=== PATIENT | male | born 1975 | race Caucasian/White ===

== ENCOUNTER → 2016-07-29 | Outpatient (REF) | payer OTHER ==
[2016-07-29 12:57] LABS: ANION GAP 11 MEQ/L (8-16); BLOOD UREA NITROGEN 16 MG/DL (7-18); CALCIUM LEVEL 9.1 MG/DL (8.5-10.1); CARBON DIOXIDE LEVEL 24 MEQ/L (21-32); CHLORIDE LEVEL 107 MEQ/L (98-107); CREATININE FOR GFR 0.98 MG/DL (0.70-1.30); GLOMERULAR FILTRATION RATE > 60.0 (>60); GLUCOSE, FASTING 85 MG/DL (70-105); POTASSIUM SERUM 3.9 MEQ/L (3.5-5.1); SODIUM LEVEL 142 MEQ/L (136-145)
== END | disposition home or self-care (01) ==
LOC: M LABDRAW1 11:23
PROVIDERS: ATTEND Physician Assistant Medical
DX: E06.3 Autoimmune thyroiditis (principal); E27.1 Primary adrenocortical insufficiency

== ENCOUNTER → 2017-02-04 | Outpatient (REF) | payer OTHER, SELFPAY | LOC: M LABDRAW1 11:43 | PROVIDERS: ATTEND Physician Assistant Medical | DX: E06.3 Autoimmune thyroiditis (principal) ==

== ENCOUNTER → 2018-04-08 | Outpatient (REF) | payer OTHER, SELFPAY ==
[2018-04-08 16:19] LABS: ANION GAP 8 MEQ/L (8-16); BLOOD UREA NITROGEN 16 MG/DL (7-18); CALCIUM LEVEL 9.2 MG/DL (8.5-10.1); CARBON DIOXIDE LEVEL 26 MEQ/L (21-32); CHLORIDE LEVEL 109 MEQ/L (98-107); CREATININE FOR GFR 0.92 MG/DL (0.70-1.30); FREE T4 1.16 NG/DL (0.76-1.46); GLOMERULAR FILTRATION RATE > 60.0 (>60); GLUCOSE, FASTING 78 MG/DL (70-100); POTASSIUM SERUM 3.8 MEQ/L (3.5-5.1); SODIUM LEVEL 143 MEQ/L (136-145)
== END ==
LOC: M LABDRAW1 12:20
DX: E06.3 Autoimmune thyroiditis (principal); E27.1 Primary adrenocortical insufficiency
CPT/HCPCS: 84443

== ENCOUNTER → 2019-05-19 | Outpatient (REF) | payer OTHER ==
[2019-05-19 12:37] LABS: BLOOD UREA NITROGEN 15 MG/DL (7-18); CALCIUM LEVEL 8.7 MG/DL (8.5-10.1); CARBON DIOXIDE LEVEL 30 MEQ/L (21-32); CHLORIDE LEVEL 108 MEQ/L (98-107); CREATININE FOR GFR 0.98 MG/DL (0.70-1.30); FREE T4 1.02 NG/DL (0.76-1.46); GLOMERULAR FILTRATION RATE > 60.0 (>60); GLUCOSE, FASTING 80 MG/DL (70-100); POTASSIUM SERUM 3.9 MEQ/L (3.5-5.1); SODIUM LEVEL 143 MEQ/L (136-145)
== END ==
LOC: M LABDRAW1 11:45
PROVIDERS: ATTEND Nurse Practitioner Family
DX: E06.3 Autoimmune thyroiditis (principal); E27.1 Primary adrenocortical insufficiency

== ENCOUNTER → 2019-07-18 | Outpatient (REF) | payer SELFPAY ==
[2019-07-18 16:43] LABS: INFLUENZA A AMPLIFICATION NEGATIVE (NEGATIVE); INFLUENZA B AMPLIFICATION NEGATIVE (NEGATIVE)
== END ==
LOC: M LAB REF 15:48
PROVIDERS: ATTEND Physician Assistant Medical
DX: J02.0 Streptococcal pharyngitis (principal)

== ENCOUNTER 2019-09-19 17:20 | Emergency (ER) | payer OTHER ==
[~2019-09-19] VITALS: Ht 167.6 cm; Wt 96.8 kg
[2019-09-19 17:21] VITALS: BP 168/110
[2019-09-19] MEDS ORDERED: HYDR-4468 PO (17:29)
[2019-09-19] MEDS ORDERED: LEVO150T7 PO (17:29)
[2019-09-19] MEDS ORDERED: LISI-542 PO (17:29)
[2019-09-19] MEDS ORDERED: FLUD0.1T PO (17:29)
[2019-09-19] MEDS ORDERED: GLUCAGON INJ 1MG VIAL IV STA (17:59)
[2019-09-19] MEDS ORDERED: GLUCAGON INJ 1MG VIAL As Ordered ONE (18:00)
[2019-09-19] MEDS ORDERED: fentaNYL 100 MCG/2 ML INJECTION (J3010) As Ordered ONE (19:54)
[2019-09-19] MEDS ORDERED: LIDOCAINE 2% 100MG/5ML SDV (FOR ANES.) As Ordered ONE (19:54)
[2019-09-19] MEDS ORDERED: propofoL 200 MG/20 ML VIAL As Ordered ONE (19:54)
[2019-09-19] MEDS ORDERED: ROCURONIUM BROMIDE 50 MG/5 ML VIAL As Ordered ONE (19:56)
[2019-09-19] MEDS ORDERED: ONDANSETRON 4MG/2ML VIAL As Ordered ONE (19:58)
[2019-09-19] MEDS ORDERED: MIDAZOLAM INJ 2MG/2ML VIAL (J2250 PER 1MG) As Ordered ONE (19:59)
--- NOTE | 2019-09-19 20:01 | HPE ---
DATE OF ADMISSION: 09/19/2019 CHIEF COMPLAINT: Dysphagia. HISTORY OF PRESENT ILLNESS: The patient is a 44-year-old male, who had steak for dinner last night and he has had trouble swallowing ever since. He has had difficulty with esophagus in the past. He was diagnosed with tertiary esophageal contractions. He has never had a balloon dilation; however, he was in the [facility] for influenza; and ever since then, he has noticed increased problems swallowing. Normally, if he gets the feeling of food stuck in his throat, he takes a large sip of water and swallows quickly and he can feel it pass. However, this time that is not working for him. He has tried everything he could. He has waited it out, but he has not been able to tolerate much more than his own secretions since last evening. In the emergency room (ER), they tried some glucagon, they tried Kourtney Mirta, without any improvement. PAST MEDICAL HISTORY: 1. [place]'s disease. 2. Hypothyroidism. PAST SURGICAL HISTORY: None. ALLERGIES: DOXYCYCLINE MEDICATIONS: Please see med rec. REVIEW OF SYSTEMS: Positives and negatives as stated in history of present illness. PHYSICAL EXAMINATION: GENERAL: Alert and oriented x3 in no acute stress. VITAL SIGNS: Stable, afebrile. HEENT: Pupils equal, round, react to light accommodation. Heart: S1-S2 regular rate. LUNGS: Clear auscultation bilaterally. ABDOMEN: Soft, nontender, nondistended. EXTREMITIES: No clubbing, cyanosis or edema. ASSESSMENT/PLAN: The patient is a 44-year-old male with esophageal obstruction likely secondary to steak from food last evening. Recommendation is esophagogastroduodenoscopy (EGD) with removal of foreign body. Risks and benefits of procedure not limited, but include bleeding, infection, perforation of the esophagus, damage to surrounding structure, need for further surgery discussed in detail with the patient. Informed was obtained, procedure was planned. I did explain to him that if I do find that there is a stricture, I will let him know when he wakes up and we can plan to get him to the proper endoscopist to have a balloon dilation of the esophagus done in the future. After his procedure, the plan will be to give him a liquid diet trial. As long as he can do that okay, we will send home today.
--- NOTE | 2019-09-19 20:44 | IPNPDOC ---
Text Note Date of Service The patient was seen on 09/19/19. NOTE This is an addendum to the H+P. In pre-op he felt nauseated just prior to going into the OR. He then had a few bouts of emesis and brought up two large chunks of meat. I postponed his surgery and let him have some liquids which he tolerated. I have discharged him home, and will have him follow up with Dr. Barker in the office for possible EGD with dilation in the future. Mike Noyola DO VS,Alay[place], I+O VS, [place]ay[place], I+O Vital Signs Date Time Temp Pulse Resp B/P (MAP) Pulse Ox O2 Delivery O2 Flow Rate FiO2 09/19/19 17:33 09/19/19 17:21 97.3 77 16 96 Room Air ANDREW NOYOLA DO Sep 19, 2019 20:43
== END 2019-09-19 21:55 | disposition home or self-care (01) ==
LOC: M ED 17:20 → M SDC 18:50 → M MS5PR 20:40 → M ED 21:55 → M MS5PR 21:55 → M SDC 21:55
DX: T18.120A Food in esophagus causing compression of trachea, initial encounter (principal); Y92.098 Other place in other non-institutional residence as the place of occurrence of the external cause; R11.2 Nausea with vomiting, unspecified; E27.1 Primary adrenocortical insufficiency; E03.9 Hypothyroidism, unspecified; I10 Essential (primary) hypertension; Z88.1 Allergy status to other antibiotic agents; Z79.899 Other long term (current) drug therapy
CPT/HCPCS: 96374; 99284; J1610

== ENCOUNTER → 2020-05-23 | Outpatient (CLI) | payer OTHER ==
[~2020-05-23] MED LIST: FLUD0.1T PO; HYDR-4468 PO; LEVO150T7 PO; LISI-542 PO
[2020-05-23 11:25] LABS: BLOOD UREA NITROGEN 17 MG/DL (7-18); CALCIUM LEVEL 9.2 MG/DL (8.5-10.1); CARBON DIOXIDE LEVEL 27 MEQ/L (21-32); CHLORIDE LEVEL 108 MEQ/L (98-107); FREE T4 1.06 NG/DL (0.76-1.46); GLOMERULAR FILTRATION RATE > 60.0 (>60); GLUCOSE, FASTING 85 MG/DL (70-100); POTASSIUM SERUM 3.7 MEQ/L (3.5-5.1); SODIUM LEVEL 139 MEQ/L (136-145)
== END ==
LOC: M PLALAB 08:58
PROVIDERS: ATTEND Nurse Practitioner Family
DX: E06.3 Autoimmune thyroiditis (principal); E27.1 Primary adrenocortical insufficiency

== ENCOUNTER → 2020-10-14 | Outpatient (CLI) | payer OTHER ==
[~2020-10-14] MED LIST changes: -LISI-542 PO; +LISI-898 PO
[2020-10-14 15:24] LABS: FREE T4 1.23 NG/DL (0.76-1.46); THYROID STIMULATING HORMONE 1.87 uIU/ML (0.358-3.740)
== END ==
LOC: M PLALAB 08:20
PROVIDERS: ATTEND Nurse Practitioner Family
DX: E06.3 Autoimmune thyroiditis (principal)

== ENCOUNTER → 2021-04-15 | Outpatient (CLI) | payer OTHER ==
[2021-04-15 14:19] LABS: BLOOD UREA NITROGEN 17 MG/DL (7-18); CALCIUM LEVEL 9.5 MG/DL (8.5-10.1); CARBON DIOXIDE LEVEL 27 MEQ/L (21-32); CHLORIDE LEVEL 107 MEQ/L (98-107); CREATININE FOR GFR 1.03 MG/DL (0.70-1.30); FREE T4 1.21 NG/DL (0.76-1.46); GLOMERULAR FILTRATION RATE > 60.0 (>60); GLUCOSE, FASTING 93 MG/DL (70-100); POTASSIUM SERUM 4.4 MEQ/L (3.5-5.1); SODIUM LEVEL 138 MEQ/L (136-145)
== END ==
LOC: M PLALAB 09:45
PROVIDERS: ATTEND Nurse Practitioner
DX: E06.3 Autoimmune thyroiditis (principal); E27.1 Primary adrenocortical insufficiency

== ENCOUNTER → 2021-12-30 | Outpatient (CLI) | payer OTHER ==
[~2021-12-30] MED LIST changes: -LISI-898 PO; +LISI5TAB11 PO
[2021-12-30 14:24] LABS: BLOOD UREA NITROGEN 12 MG/DL (7-18); CALCIUM LEVEL 9.4 MG/DL (8.5-10.1); CARBON DIOXIDE LEVEL 29 MEQ/L (21-32); CHLORIDE LEVEL 108 MEQ/L (98-107); CREATININE FOR GFR 0.93 MG/DL (0.70-1.30); FREE T4 1.32 NG/DL (0.76-1.46); GLOMERULAR FILTRATION RATE > 60.0 (>60); GLUCOSE, FASTING 101 MG/DL (70-100); POTASSIUM SERUM 4.1 MEQ/L (3.5-5.1); SODIUM LEVEL 140 MEQ/L (136-145); THYROID STIMULATING HORMONE 0.239 uIU/ML (0.358-3.740)
== END ==
LOC: M PLALAB 09:21
PROVIDERS: ATTEND Nurse Practitioner Family
DX: E06.3 Autoimmune thyroiditis (principal); E27.1 Primary adrenocortical insufficiency

== ENCOUNTER → 2022-04-13 | Outpatient (REF) | payer OTHER ==
[2022-04-13 11:39] LABS: BLOOD UREA NITROGEN 16 MG/DL (7-18); CALCIUM LEVEL 9.2 MG/DL (8.5-10.1); CARBON DIOXIDE LEVEL 28 MEQ/L (21-32); CHLORIDE LEVEL 104 MEQ/L (98-107); CREATININE FOR GFR 0.97 MG/DL (0.70-1.30); FREE T4 1.19 NG/DL (0.76-1.46); GLOMERULAR FILTRATION RATE > 60.0 (>60); GLUCOSE, FASTING 90 MG/DL (70-100); POTASSIUM SERUM 4.5 MEQ/L (3.5-5.1); SODIUM LEVEL 137 MEQ/L (136-145)
== END ==
LOC: M PLALAB 09:43
PROVIDERS: ATTEND Nurse Practitioner Family
DX: E06.3 Autoimmune thyroiditis (principal); E27.1 Primary adrenocortical insufficiency

== ENCOUNTER → 2022-10-08 | Outpatient (CLI) | payer OTHER ==
[2022-10-08 10:40] LABS: BLOOD UREA NITROGEN 18 MG/DL (9-23); CALCIUM LEVEL 8.9 MG/DL (8.5-10.1); CARBON DIOXIDE LEVEL 28 MMOL/L (20-31); CHLORIDE LEVEL 109 MMOL/L (98-107); CREATININE FOR GFR 0.93 MG/DL (0.70-1.30); GLOMERULAR FILTRATION RATE > 60.0 (>60); GLUCOSE, FASTING 87 MG/DL (60-100); SODIUM LEVEL 141 MMOL/L (136-145)
[2022-10-08 10:43] LABS: FREE T4 1.12 NG/DL (0.89-1.76); THYROID STIMULATING HORMONE 1.708 uIU/ML (0.55-4.78)
== END ==
LOC: M PLALAB 07:25
PROVIDERS: ATTEND Nurse Practitioner Family
DX: E27.1 Primary adrenocortical insufficiency (principal); E06.3 Autoimmune thyroiditis

== ENCOUNTER → 2023-11-02 | Outpatient (CLI) | payer OTHER ==
[2023-11-02 10:32] LABS: BLOOD UREA NITROGEN 16 MG/DL (9-23); CALCIUM LEVEL 9.1 MG/DL (8.5-10.1); CARBON DIOXIDE LEVEL 24 MMOL/L (20-31); CHLORIDE LEVEL 107 MMOL/L (98-107); CREATININE FOR GFR 0.98 MG/DL (0.70-1.30); GLOMERULAR FILTRATION RATE > 60.0 (>56); GLUCOSE, FASTING 87 MG/DL (60-100); SODIUM LEVEL 140 MMOL/L (136-145)
[2023-11-02 10:33] LABS: FREE T4 1.44 NG/DL (0.89-1.76)
[2023-11-02 10:34] LABS: THYROID STIMULATING HORMONE 0.804 uIU/ML (0.55-4.78)
== END ==
LOC: M PLALAB 08:26
PROVIDERS: ATTEND Nurse Practitioner Family
DX: E27.1 Primary adrenocortical insufficiency (principal)

== ENCOUNTER → 2024-06-02 | Outpatient (REF) | payer OTHER ==
[2024-06-02 16:42] LABS: BASO % 0.2 % (0.0-1.0); EOS # 0.1 10^3/uL (0.0-0.5); EOS % 0.6 % (0.0-3.0); HEMATOCRIT 46.3 % (42.0-52.0); HEMOGLOBIN 15.6 g/dl (13.5-17.5); LYMPH # 1.6 10^3/uL (1.5-5.0); LYMPH % 16.8 % (24.0-44.0); MEAN CORPUSCULAR HGB CONC 33.7 g/dl (32.0-36.5); MEAN CORPUSCULAR VOLUME 80.2 fl (80.0-96.0); MONO # 0.5 10^3/uL (0.0-0.8); MONO % 5.5 % (2.0-8.0); NEUTROPHILS # 7.5 10^3/uL (1.5-8.5); NEUTROPHILS % 76.5 % (36.0-66.0); PLATELET COUNT, AUTOMATED 293 10^3/uL (150-450); RED BLOOD COUNT 5.77 10^6/uL (4.30-6.10); WHITE BLOOD COUNT 9.8 10^3/uL (4.0-10.0)
== END ==
LOC: M LAB REF 16:28
PROVIDERS: ATTEND Internal Medicine
DX: Z00.00 Encounter for general adult medical examination without abnormal findings (principal)

== ENCOUNTER 2024-06-28 14:57 | Emergency (ER) | payer OTHER ==
[~2024-06-28] VITALS: Ht 167.6 cm; Wt 115.1 kg
[2024-06-28] MEDS ORDERED: AMOX250C3 (15:16)
[2024-06-28] MEDS ORDERED: LEVOTAB10 (15:16)
[2024-06-28] MEDS ORDERED: AMLO1TAB24 (15:16)
[2024-06-28] MEDS ORDERED: HYDR-3490 (15:16)
[2024-06-28] MEDS ORDERED: CETI10CA13 PO (15:28)
[2024-06-28] MEDS ORDERED: BENA25CA4 PO (15:28)
[2024-06-28] MEDS: FAMOTIDINE 20MG/2ML VIAL IVP ONE (15:50)
[2024-06-28] MEDS: dexAMETHasone 20MG/5ML VIAL IV ONE (15:50)
[2024-06-28 15:53] LABS: BASO % 0.1 % (0.0-1.0); EOS # 0.1 10^3/uL (0.0-0.5); EOS % 0.9 % (0.0-3.0); HEMATOCRIT 41.1 % (42.0-52.0); HEMOGLOBIN 13.8 g/dl (13.5-17.5); LYMPH % 15.9 % (24.0-44.0); MEAN CORPUSCULAR HEMOGLOBIN 26.6 pg (27.0-33.0); MEAN CORPUSCULAR HGB CONC 33.6 g/dl (32.0-36.5); MEAN CORPUSCULAR VOLUME 79.3 fl (80.0-96.0); MONO # 0.8 10^3/uL (0.0-0.8); MONO % 6.2 % (2.0-8.0); NEUTROPHILS # 9.4 10^3/uL (1.5-8.5); NEUTROPHILS % 76.2 % (36.0-66.0); PLATELET COUNT, AUTOMATED 317 10^3/uL (150-450); RED BLOOD COUNT 5.18 10^6/uL (4.30-6.10); WHITE BLOOD COUNT 12.3 10^3/uL (4.0-10.0)
[2024-06-28 16:25] LABS: BLOOD UREA NITROGEN 18 MG/DL (9-23); CARBON DIOXIDE LEVEL 27 MMOL/L (20-31); CHLORIDE LEVEL 105 MMOL/L (98-107); CREATININE FOR GFR 0.96 MG/DL (0.70-1.30); GLOMERULAR FILTRATION RATE > 60.0 (>56); GLUCOSE, FASTING 119 MG/DL (60-100); SODIUM LEVEL 139 MMOL/L (136-145)
[2024-06-28 16:27] LABS: COMPLEMENT C4 28.3 MG/DL (12-36)
[2024-06-28 17:48] VITALS: BP 136/92; TEMP 97.4; O2SAT 94
== END 2024-06-28 17:49 | disposition home or self-care (01) ==
LOC: M ED 14:57
DX: R22.0 Localized swelling, mass and lump, head (principal); T46.1X5A Adverse effect of calcium-channel blockers, initial encounter; Z88.8 Allergy status to other drugs, medicaments and biological substances; Z79.2 Long term (current) use of antibiotics; Z79.899 Other long term (current) drug therapy
CPT/HCPCS: 80048; 85025; 86160; 93041; 94760; 96374; 99284; J1100; S0028

== ENCOUNTER → 2024-10-20 | Outpatient (CLI) | payer OTHER ==
[~2024-10-20] MED LIST changes: +AMLO1TAB24; +AMOX250C3; +BENA25CA4 PO; +CETI10CA13 PO; +HYDR-3490; +LEVOTAB10
[2024-10-20 11:50] LABS: ERYTHROCYTE SEDIMENTATION RATE 13 mm/hr (0-20)
[2024-10-20 12:04] LABS: C REACTIVE PROTEIN QUANTITATIV 1.89 MG/DL (<1.0)
[2024-10-20 12:08] LABS: COMPLEMENT C3 152.4 MG/DL (90.0-170.0); COMPLEMENT C4 30.9 MG/DL (12-36); RHEUMATOID FACTOR QUANT 10.2 IU/ML (<14)
[2024-10-20 12:09] LABS: FERRITIN 71.5 NG/ML (10.5-307.3)
[2024-10-20 13:47] LABS: BASO % 0.1 % (0.0-1.0); EOS # 0.2 10^3/uL (0.0-0.5); EOS % 3.1 % (0.0-3.0); HEMATOCRIT 43.2 % (42.0-52.0); HEMOGLOBIN 14.2 g/dl (13.5-17.5); LYMPH # 2.6 10^3/uL (1.5-5.0); LYMPH % 33.9 % (24.0-44.0); MEAN CORPUSCULAR HEMOGLOBIN 26.3 pg (27.0-33.0); MEAN CORPUSCULAR HGB CONC 32.9 g/dl (32.0-36.5); MEAN CORPUSCULAR VOLUME 80.1 fl (80.0-96.0); MONO # 0.7 10^3/uL (0.0-0.8); MONO % 9.1 % (2.0-8.0); NEUTROPHILS # 4.1 10^3/uL (1.5-8.5); NEUTROPHILS % 53.4 % (36.0-66.0); PLATELET COUNT, AUTOMATED 241 10^3/uL (150-450); RED BLOOD COUNT 5.39 10^6/uL (4.30-6.10); WHITE BLOOD COUNT 7.7 10^3/uL (4.0-10.0)
[2024-10-24 02:38] LABS: TISSUE TRANSGLUTAMINASE IgA < 1.0 U/mL (<15.0)
[2024-10-24 10:43] LABS: ANA SCREEN, IFA NEGATIVE (NEGATIVE)
[2024-10-25 14:52] LABS: LYME TOTAL ANTIBODY CIA <= 0.90 Index (<=0.90)
== END ==
LOC: M PLALAB 07:55
PROVIDERS: ATTEND Physician Assistant
DX: L83 Acanthosis nigricans (principal); R21 Rash and other nonspecific skin eruption

== ENCOUNTER 2024-12-07 07:43 | Emergency (ER) | payer OTHER ==
[~2024-12-07] VITALS: Ht 167.6 cm; Wt 116.4 kg
[2024-12-07] MEDS ORDERED: ROSU5TAB49 (08:39)
[2024-12-07] MEDS ORDERED: DUPI300I (08:39)
[2024-12-07] MEDS ORDERED: FERR32TA (08:39)
[2024-12-07] MEDS ORDERED: MONT10TA97 (08:39)
[2024-12-07] MEDS ORDERED: TADA5TAB2 (08:39)
[2024-12-07] MEDS: diphenhydrAMINE 50 MG/ML VIAL IV ONE (09:13)
[2024-12-07] MEDS: FAMOTIDINE 20 MG/2 ML VIAL IVP ONE (09:13)
[2024-12-07] MEDS: dexAMETHasone 20 MG/5 ML VIAL IV ONE (09:13)
[2024-12-07 11:56] VITALS: BP 111/66; TEMP 97.9; O2SAT 93
== END 2024-12-07 11:57 | disposition home or self-care (01) ==
LOC: M ED 07:43
DX: T78.01XA Anaphylactic reaction due to peanuts, initial encounter (principal); Y92.9 Unspecified place or not applicable; Y93.9 Activity, unspecified; I10 Essential (primary) hypertension; E07.9 Disorder of thyroid, unspecified; Z79.899 Other long term (current) drug therapy; Z88.1 Allergy status to other antibiotic agents; Z88.8 Allergy status to other drugs, medicaments and biological substances
CPT/HCPCS: 96374; 96375; 99284; J1100; J1200; J1308

== ENCOUNTER → 2025-01-31 | Outpatient (CLI) | payer OTHER ==
[~2025-01-31] MED LIST changes: +DUPI300I; +FERR32TA; +MONT10TA97; +ROSU5TAB49; +TADA5TAB2
[2025-01-31 11:25] LABS: PLATELET COUNT, AUTOMATED 228 10^3/uL (150-450)
[2025-01-31 12:04] LABS: ALT/SGPT 24 U/L (7.0-40); AST/SGOT 20 U/L (<34); CALCIUM LEVEL 9.6 MG/DL (8.5-10.1); CARBON DIOXIDE LEVEL 27 MMOL/L (20-31); CHLORIDE LEVEL 104 MMOL/L (98-107); CHOLESTEROL LEVEL 170 MG/DL (<200); CHOLESTEROL RISK RATIO 2.25 (<5); CREATININE FOR GFR 0.96 MG/DL (0.70-1.30); GLOMERULAR FILTRATION RATE > 90.0 (>56); LDL CHOLESTEROL 78.6 MG/DL (<100); MAGNESIUM LEVEL 1.6 MG/DL (1.8-2.4); NON-HDL-C 94.6 MG/DL; POTASSIUM SERUM 4.1 MMOL/L (3.5-5.1); SODIUM LEVEL 142 MMOL/L (136-145); TRIGLYCERIDES LEVEL 80 MG/DL (<150)
== END ==
LOC: M PLALAB 08:11
PROVIDERS: ATTEND Physician Assistant
DX: Z51.81 Encounter for therapeutic drug level monitoring (principal); Z79.899 Other long term (current) drug therapy

== ENCOUNTER 2025-06-06 19:59 | Emergency (ER) | payer OTHER ==
[~2025-06-06] VITALS: Ht 167.6 cm; Wt 118.7 kg
[2025-06-06] MEDS: dexAMETHasone 4 MG/ML 1 ML VIAL PO ONE (21:00)
[2025-06-06] MEDS: IPRATROPIUM 0.5 MG/ALBUTEROL 2.5 MG INH SOL UD 3 ML NEB ONE (21:08)
[2025-06-06] MEDS ORDERED: ALBUTEROL 90 MCG/ACT 8 GM HFA INHALER INH ONE (21:35)
[2025-06-06] MEDS ORDERED: VENTAER INH (21:51)
[2025-06-06] MEDS: ALBUTEROL 90 MCG/ACT 8 GM HFA INHALER INH ONE (22:08)
[2025-06-06 22:10] VITALS: BP 142/70; TEMP 98.5; O2SAT 96
== END 2025-06-06 22:10 | disposition home or self-care (01) ==
LOC: M ED 19:59
DX: R06.02 Shortness of breath (principal); B97.4 Respiratory syncytial virus as the cause of diseases classified elsewhere; I10 Essential (primary) hypertension; E03.9 Hypothyroidism, unspecified; Z79.899 Other long term (current) drug therapy; Z88.1 Allergy status to other antibiotic agents; Z88.8 Allergy status to other drugs, medicaments and biological substances
CPT/HCPCS: 71046; 87486; 87581; 87633; 87798; 94640; 99284; J1100